=== PATIENT | male | born 1980 | race American Indian/Alaskan Native ===

== ENCOUNTER 2021-01-30 03:42 | Emergency (ER) | payer SELFPAY ==
[2021-01-30] MEDS ORDERED: LORazepam 2 MG/ML VIAL IM PRN (03:59)
[2021-01-30] MEDS ORDERED: HALOPERIDOL LACTATE 5 MG/1 ML INJ IM PRN (03:59)
--- NOTE | 2021-01-30 04:00 | Emergency Department Report ---
ED General Adult HPI - General Chief complaint: Psych Stated complaint: SUICIDAL IDEATIONS PUI?: No Time Seen by Provider: 01/30/21 03:57 Source: EMS ( EMS documentation not available at time of chart dictation ) Mode of arrival: Stretcher Limitations: No Limitations - History of Present Illness Initial comments: The patient is a 40-year-old gentleman. He is not known to myself previously. The patient reports that he is recently diagnosed as HIV positive a few months ago, and is currently maintained on Biktarvy. He also has a history of diabetes, and hypertension. He reports that he was recently released from incarceration, and has recently gotten , and is now homeless. He reports that he is hopeless and suicida l, and trying to overdose on crack cocaine. He denies headache, neck pain, chest pain, abdominal pain, nausea, vomiting diarrhea. He denies hallucinations. He reports that "I need help sorting this out." He reports he does not use intravenous drugs. He reports that he smokes crack. -: Gradual Severity scale (0 -10): 0 Consistency: constant Improves with: none Worsens with: none - Related Data Home Medications Medication Instructions Recorded Confirmed Last Taken Bictegrav/Emtricit/Tenofov Ala 1 each PO DAILY 01/30/21 01/30/21 Unknown [Biktarvy 50-200-25 mg Tablet] Losartan [Cozaar] 50 mg PO QDAY 01/30/21 01/30/21 Unknown Metformin HCl [metFORMIN] 1,000 mg PO BID 01/30/21 01/30/21 Unknown Previous Rx's Medication Instructions Recorded Last Taken Type Acetaminophen/Codeine [Tylenol #3] 1 tab PO Q6H PRN #12 tab 05/06/15 Unknown Rx Cyclobenzaprine [Flexeril] 10 mg PO QHS PRN #10 tablet 12/13/17 Unknown Rx Ibuprofen [Motrin] 600 mg PO Q8H PRN #20 tablet 12/13/17 Unknown Rx Allergies Allergy/AdvReac Type Severity Reaction Status Date / Time No Known Allergies Allergy Verified 05/06/15 01:36 ED Review of Systems ROS: Stated complaint: SUICIDAL IDEATIONS Other details as noted in HPI Constitutional: malaise. denies: fever Eyes: denies: eye discharge ENT: denies: epistaxis Respiratory: denies: cough Cardiovascular: denies: chest pain Gastrointestinal: denies: nausea, vomiting, diarrhea Genitourinary: denies: dysuria Musculoskeletal: denies: back pain Neurological: weakness. denies: headache Psychiatric: depression, suicidal thoughts ED Past Medical Hx - Past Medical History Hx Hypertension: Yes Hx Diabetes: Yes Hx Psychiatric Treatment: Yes (SI) - Surgical History Additional Surgical History: head 1996 - Social History Smoking Status: Unknown if ever smoked Substance Use Type: Marijuana - Medications Home Medications: Home Medications Medication Instructions Recorded Confirmed Last Taken Type Acetaminophen/Codeine [Tylenol #3] 1 tab PO Q6H PRN #12 tab 05/06/15 Unknown Rx Cyclobenzaprine [Flexeril] 10 mg PO QHS PRN #10 tablet 12/13/17 Unknown Rx Ibuprofen [Motrin] 600 mg PO Q8H PRN #20 tablet 12/13/17 Unknown Rx Bictegrav/Emtricit/Tenofov Ala 1 each PO DAILY 01/30/21 01/30/21 Unknown History [Biktarvy 50-200-25 mg Tablet] Losartan [Cozaar] 50 mg PO QDAY 01/30/21 01/30/21 Unknown History Metformin HCl [metFORMIN] 1,000 mg PO BID 01/30/21 01/30/21 Unknown History ED Physical Exam - General Limitations: No Limitations General appearance: alert, in no apparent distress - Head Head exam: Present: atraumatic, normocephalic - Eye Eye exam: Present: normal appearance, EOMI. Absent: nystagmus - ENT ENT exam: Present: normal exam, normal orophraynx, mucous membranes moist, normal external ear exam - Neck Neck exam: Present: normal inspection, full ROM. Absent: tenderness, meningi smus - Respiratory Respiratory exam: Present: normal lung sounds bilaterally. Absent: respiratory distress, wheezes, rales, rhonchi, stridor, decreased breath sounds - Cardiovascular Cardiovascular Exam: Present: regular rate, normal rhythm, normal heart sounds. Absent: bradycardia, tachycardia, irregular rhythm, systolic murmur, diastolic murmur, rubs, gallop - GI/Abdominal GI/Abdominal exam: Present: soft. Absent: distended, tenderness, guarding, rebound, rigid, pulsatile mass - Rectal Rectal exam: Present: deferred - Extremities Exam Extremities exam: Present: normal inspection, full ROM, other (2+ pulses noted in the bilateral upper and lower extremities. There is no palpable cord. nega tive Homans sign. Muscular compartments are soft. The pelvis is stable.). Absent: pedal edema, calf tenderness - Back Exam Back exam: Present: normal inspection. Absent: tenderness, CVA tenderness (R), CVA tenderness (L), paraspinal tenderness, vertebral tenderness - Neurological Exam Neurological exam: Present: alert, oriented X3, normal gait, other (No facial droop. Tongue midline. Extraocular movements intact bilaterally. Facial sensation intact to light touch in V1, V2, V3 distribution bilaterally. 5 and a 5 strength in 4 extremities. Sensation intact to light touch in 4 extremities.). Absent: motor sensory deficit - Psychiatric Psychiatric exam: Present: depressed, suicidal ideation. Absent: homicidal ideation - Skin Skin exam: Present: warm, dry, intact, normal color. Absent: rash ED Course Vital Signs 01/30/21 01/30/21 03:57 04:11 Temperature 98.7 F Pulse Rate 88 Respiratory 16 Rate Blood Pressure 138/78 [Left] O2 Sat by Pulse 98 98 Oximetry - Reevaluation(s) Reevaluation #1: 01/30/21 05:37 Differential diagnosis, including but not limited to: Homelessness, depression, dysthymia, suicidality, crack cocaine dependence, medical clearance for psychiatric placement Assessment and plan: 40-year-old gentleman, who was afebrile, with reassuring vital signs, who is clinically sober, who walks with a steady gait, who presents to the ER today with a complaint of suicidality. He is placed on a 1013. Laboratory studies ordered. Home medications to be reconciled. Reassess after acquisition of laboratory studies. 01/30/21 07:03 Laboratory studies are reviewed and appreciated. They are fairly unremarkable. CK will decrease on its own with rest and oral hydration. Urinalysis and Covid swab pending. The patient denied Covid symptoms and urinary symptoms to myself. The emergency room will follow along as the patient provides these results, and the 10 o'clock position will get around on this patient to also follow-up on these results. At this point in time, this patient does not appear to have an immediate medical contraindication to psychiatric admission, evaluation, consultation and placement. ED Medical Decision Making - Lab Data Result diagrams: 01/30/21 05:48 12/19/21 05:48 Vital Signs 01/30/21 01/30/21 03:57 04:11 Temperature 98.7 F Pulse Rate 88 Respiratory 16 Rate Blood Pressure 138/78 [Left] O2 Sat by Pulse 98 98 Oximetry Lab Results 01/30/21 01/30/21 01/30/21 Range/Units 05:48 05:48 05:48 WBC (4.5-11.0) K/mm3 RBC (3.65-5.03) M/mm3 Hgb (11.8-15.2) gm/dl Hct (35.5-45.6) % MCV (84-94) fl MCH (28-32) pg MCHC (32-34) % RDW (13.2-15.2) % Plt Count (140-440) K/mm3 Lymph % (Auto) (13.4-35.0) % [place] % (Auto) (0.0-7.3) % Eos % (Auto) (0.0-4.3) % Baso % (Auto) (0.0-1.8) % Lymph # (Auto) (1.2-5.4) K/mm3 [place] # (Auto) (0.0-0.8) K/mm3 Eos # (Auto) (0.0-0.4) K/mm3 Baso # (Auto) (0.0-0.1) K/mm3 Seg Neutrophils % (40.0-70.0) % Seg Neutrophils # (1.8-7.7) K/mm3 Sodium 130 L (137-145) mmol/L Potassium 4.4 (3.6-5.0) mmol/L Chloride 91.8 L (98-107) mmol/L Carbon Dioxide 24 (22-30) mmol/L Anion Gap 19 mmol/L BUN 14 (9-20) mg/dL Creatinine 0.9 (0.8-1.3) mg/dL Estimated GFR > 60 ml/min BUN/Creatinine Ratio 16 % Glucose 202 H (75-100) mg/dL Calcium 9.3 (8.4-10.2) mg/dL Total Creatine Kinase (55-170) units/L Salicylates < 0.3 L (2.8-20.0) mg/dL Acetaminophen 5.0 L (10.0-30.0) ug/mL Plasma/Serum Alcohol (0-0.07) % 01/30/21 01/30/21 01/30/21 Range/Units 05:48 05:48 05:48 WBC 7.2 (4.5-11.0) K/mm3 RBC 5.31 H (3.65-5.03) M/mm3 Hgb 15.4 H (11.8-15.2) gm/dl Hct 47.0 H (35.5-45.6) % MCV 89 (84-94) fl MCH 29 (28-32) pg MCHC 33 (32-34) % RDW 13.8 (13.2-15.2) % Plt Count 169 (140-440) K/mm3 Lymph % (Auto) 27.6 (13.4-35.0) % [place] % (Auto) 8.9 H (0.0-7.3) % Eos % (Auto) 0.1 (0.0-4.3) % Baso % (Auto) 0.5 (0.0-1.8) % Lymph # (Auto) 2.0 (1.2-5.4) K/mm3 [place] # (Auto) 0.6 (0.0-0.8) K/mm3 Eos # (Auto) 0.0 (0.0-0.4) K/mm3 Baso # (Auto) 0.0 (0.0-0.1) K/mm3 Seg Neutrophils % 62.9 (40.0-70.0) % Seg Neutrophils # 4.5 (1.8-7.7) K/mm3 Sodium (137-145) mmol/L Potassium (3.6-5.0) mmol/L Chloride (98-107) mmol/L Carbon Dioxide (22-30) mmol/L Anion Gap mmol/L BUN (9-20) mg/dL Creatinine (0.8-1.3) mg/dL Estimated GFR ml/min BUN/Creatinine Ratio % Glucose (75-100) mg/dL Calcium (8.4-10.2) mg/dL Total Creatine Kinase 395 H (55-170) units/L Salicylates (2.8-20.0) mg/dL Acetaminophen (10.0-30.0) ug/mL Plasma/Serum Alcohol < 0.01 (0-0.07) % Vital Signs 01/30/21 01/30/21 03:57 04:11 Temperature 98.7 F Pulse Rate 88 Respiratory 16 Rate Blood Pressure 138/78 [Left] O2 Sat by Pulse 98 98 Oximetry Critical care attestation.: If time is entered above; I have spent that time in minutes in the direct care of this critically ill patient, excluding procedure time. ED Disposition Clinical Impression: Medical clearance for psychiatric admission, Crack cocaine use, Homelessness Disposition: [address] [place] [address] Is pt being admited?: No Does the pt Need Aspirin: No Condition: Good Referrals: PRIMARY CARE, [Primary Care Provider] - 3-5 Days
[2021-01-30 06:18] LABS: Basophils % (Auto) 0.5 % (0.0-1.8); Eosinophils % (Auto) 0.1 % (0.0-4.3); Hemoglobin 15.4 gm/dl (11.8-15.2); Lymphocytes % (Auto) 27.6 % (13.4-35.0); Mean Corpuscular HGB Conc 33 % (32-34); Mean Corpuscular Volume 89 fl (84-94); Monocytes # (Auto) 0.6 K/mm3 (0.0-0.8); Monocytes % (Auto) 8.9 % (0.0-7.3); Red Blood Count 5.31 M/mm3 (3.65-5.03); Red Cell Distribution Width 13.8 % (13.2-15.2)
[2021-01-30 06:26] LABS: Platelet Count 169 K/mm3 (140-440)
[2021-01-30 06:50] LABS: BUN/Creatinine Ratio 16; Blood Urea Nitrogen 14 mg/dL (9-20); Calcium 9.3 mg/dL (8.4-10.2); Hemolysis Index 9
[2021-01-30] MEDS: metFORMIN 500 MG TAB PO SCH (08:29)
[2021-01-30] MEDS ORDERED: NON-FORMULARY EACH (Bictegrav/Emtricit/Tenofov Ala [Biktarvy 50-200-25 Mg Tablet] 1 EACH T PO SCH (10:00)
[2021-01-30] MEDS ORDERED: NON-FORMULARY EACH (Metformin Hcl [Metformin] 1,000 MG Tablet) PO SCH (10:00)
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
[2021-01-30] MEDS: LOSARTAN 50 MG TAB PO SCH (11:51)
[2021-01-30] MEDS: EMTRICITABINE 200 MG CAP PO SCH (11:51)
[2021-01-30] MEDS: TENOFOVIR 300 MG TAB PO SCH (11:52)
[2021-01-30] MEDS: DOLUTEGRAVIR 50 MG TAB PO SCH (11:52)
[2021-01-30] MEDS: SERTRALINE 25 MG TAB PO SCH (11:53)
[2021-01-30] MEDS: DOXEPIN 25 MG CAP PO SCH (22:48)
[2021-01-31] MEDS: metFORMIN 500 MG TAB PO SCH ×2 (08:18→17:54)
--- NOTE | 2021-01-31 10:41 | Progress Note ---
Subjective - Reason for Consult Consult date: 01/31/21 Reason for consult: SI - Chief Complaint Chief complaint: The patient was seen today. He still endorses SI with no plan. He also verbalizes being "real depressed." The patient denies hallucinations of any kind REVIEW OF SYSTEMS Constitutional: Negative for weight loss ENT: Negative for stridor Respiratory: Negative for cough or hemoptysis All other systems reviewed and are negative MENTAL STATUS EXAMINATION General Appearance and Behavior: Age appropriate, good hygiene, wearing appropriate clothes. calm, cooperative Cooperation: Cooperative Psychomotor Behavior: Psychomotor normal Mood: severely depressed Affect and affective range: congruent with stated mood Thought Process: Goal directed Thought Content: Reality oriented Speech: Normal tone and pace Suicidal Ideation: Yes Homicidal Ideation: Denies Hallucinations: Denies Delusions: None elicited Impulse Control: Limited Insight and Judgment: Limited insight and good judgment Memory: Limited Attention: distracted Orientation: a/o x 3 Assessment (1) Major Depressive Disorder (2) Cocaine Use Disorder Treatment Plan 1013 Zoloft 25mg po daily Doxepin 25mg po qhs Medical: per primary Disposition: Recommend acute psychiatric inpatient treatment Will follow. thanks Case staffed with Dr. Morrow Mental Status Exam - Vital signs Last Vital Signs Temp 98.2 F 01/31/21 09:02 Pulse 96 H 01/31/21 09:02 Resp 18 01/31/21 09:02 BP 150/84 01/31/21 09:02 Pulse Ox 96 01/31/21 09:03
[2021-01-31] MEDS: LOSARTAN 50 MG TAB PO SCH (11:02)
[2021-01-31] MEDS: SERTRALINE 25 MG TAB PO SCH (11:02)
--- NOTE | 2021-01-31 11:11 | Event Note ---
Date: 01/31/21 Patient still endorsing suicidal ideation with no plan. Vital signs stable. 's labs reviewed and Accu-Chek is 253. Patient is currently taking Glucophage. Waiting for inpatient psychiatric admission.
[2021-01-31] MEDS: EMTRICITABINE 200 MG CAP PO SCH (12:21)
[2021-01-31] MEDS: DOLUTEGRAVIR 50 MG TAB PO SCH (12:21)
[2021-01-31] MEDS: TENOFOVIR 300 MG TAB PO SCH (12:21)
[2021-01-31 22:13] LABS: Bilirubin,Urine NEG (Negative); Blood,Urine NEG (Negative); Color,Urine Yellow (Yellow); RBC,Urine < 1.0 /HPF (0.0-6.0)
[2021-01-31 22:20] LABS: Amphetamine Screen,Urine Negative; Benzodiazepines Screen,Urine Negative; Cannabinoid Screen,Urine Negative; Methadone Screen,Urine Negative; Opiate Screen,Urine Negative
[2021-01-31] MEDS: DOXEPIN 25 MG CAP PO SCH (22:35)
[2021-01-31 22:36] LABS: Cocaine Screen,Urine Positive
--- NOTE | 2021-02-01 10:04 | Progress Note ---
Subjective - Reason for Consult Consult date: 02/01/21 Reason for consult: SI - Chief Complaint Chief complaint: The patient was seen today. He verbalizes feeling real depressed. The patient says "I feel weird and I don't know why." He says "not really so much" when asked was he still suicidal. He says "just real weird." The patient talks about seeing demons and pitch forks. He says "I keep seeing all these demons and stuff." REVIEW OF SYSTEMS Constitutional: Negative for weight loss ENT: Negative for stridor Respiratory: Negative for cough or hemoptysis All other systems reviewed and are negative MENTAL STATUS EXAMINATION General Appearance and Behavior: Age appropriate, good hygiene, wearing appropriate clothes. calm, cooperative Cooperation: Cooperative Psychomotor Behavior: Psychomotor normal Mood: severely depressed Affect and affective range: congruent with stated mood Thought Process: Goal directed Thought Content: Reality oriented Speech: Normal tone and pace Suicidal Ideation: Yes Homicidal Ideation: Denies Hallucinations: Visual Delusions: None elicited Impulse Control: Limited Insight and Judgment: Limited insight and good judgment Memory: Limited Attention: distracted Orientation: a/o x 3 Assessment (1) Major Depressive Disorder (2) Cocaine Use Disorder Treatment Plan 1013 Zoloft 25mg po daily Doxepin 25mg po qhs Start Abilify 5mg po daily Medical: per primary Disposition: Recommend acute psychiatric inpatient treatment Will follow. thanks Case staffed with Dr. Morrow Mental Status Exam - Vital signs Last Vital Signs Temp 98.5 F 02/01/21 08:58 Pulse 110 H 02/01/21 08:58 Resp 16 02/01/21 08:58 BP 136/95 02/01/21 08:58 Pulse Ox 93 02/01/21 08:58
[2021-02-01] MEDS: metFORMIN 500 MG TAB PO SCH ×2 (11:37→17:31)
[2021-02-01] MEDS: LOSARTAN 50 MG TAB PO SCH (11:37)
[2021-02-01] MEDS ORDERED: guaiFENesin DM 200/20 MG ORAL LIQD 10 ML PO PRN (12:52)
--- NOTE | 2021-02-01 12:52 | Event Note ---
Date: 02/01/21 S: No events reported overnight. Patient with occasional cough. Coronavirus negative O: Vital Signs - 8 hr 02/01/21 02/01/21 08:58 11:37 Temperature 98.5 F Pulse Rate 110 H 110 H Respiratory 16 Rate Blood Pressure 136/95 Blood Pressure 136/95 [Left] O2 Sat by Pulse 93 Oximetry Chest x-ray (read by myself)-no focal infiltrates, no pneumothorax [facility] [address] [place] [address] XRay Report Signed Patient: YANIRA LAGOS JR MR#: [id number] : 1980 Acct:[id number] Age/Sex: 40 / M ADM Date: 01/30/21 Loc: ED Attending Dr: Ordering Physician: AZEB MYERS MD Date of Service: 02/01/21 Procedure(s): XR chest routine 2V Accession Number(s): [id number] cc: AZEB MYERS MD Fluoro Time In Minutes: CHEST 2 VIEWS INDICATION / CLINICAL INFORMATION: Cough. COMPARISON: None available. FINDINGS: SUPPORT DEVICES: None. HEART / MEDIASTINUM: No significant abnormality. LUNGS / PLEURA: No significant pulmonary or pleural abnormality. No pneumothorax. ADDITIONAL FINDINGS: No significant additional findings. IMPRESSION: 1. No acute findings. Signer Name: Tung Acevedo MD Signed: 02/01/2021 1:32 PM Workstation Name: [id number] Transcribed By: KURT Dictated By: Tung Acevedo MD Electronically Authenticated By: Tung Acevedo MD Signed Date/Time: 02/01/211331 DD/ 31 TD/TT: Print Cancel A: Major depressive disorder, cocaine use P: 1013/awaiting inpatient psych. Chest x-ray. Cough medication as needed
--- NOTE | 2021-02-01 13:36 | XRay Report ---
CHEST 2 VIEWS INDICATION / CLINICAL INFORMATION: Cough. COMPARISON: None available. FINDINGS: SUPPORT DEVICES: None. HEART / MEDIASTINUM: No significant abnormality. LUNGS / PLEURA: No significant pulmonary or pleural abnormality. No pneumothorax. ADDITIONAL FINDINGS: No significant additional findings. IMPRESSION: 1. No acute findings. Signer Name: Tung Acevedo MD Signed: 02/01/2021 1:32 PM Workstation Name: [id number]
[2021-02-01] MEDS: DOLUTEGRAVIR 50 MG TAB PO SCH (17:31)
[2021-02-01] MEDS: TENOFOVIR 300 MG TAB PO SCH (17:31)
[2021-02-01] MEDS: ARIPiprazole 5 MG TAB PO SCH (17:31)
[2021-02-01] MEDS: SERTRALINE 25 MG TAB PO SCH (17:31)
[2021-02-01] MEDS: EMTRICITABINE 200 MG CAP PO SCH (17:31)
[2021-02-02] MEDS: DOXEPIN 25 MG CAP PO SCH (00:30)
[2021-02-02] MEDS: metFORMIN 500 MG TAB PO SCH (08:01)
--- NOTE | 2021-02-02 08:34 | Progress Note ---
Subjective - Reason for Consult Consult date: 02/02/21 Reason for consult: SI, substance use - Chief Complaint Chief complaint: The patient was seen today. He is calm, cooperative and pleasant. He verbalizes doing better. He says he slept "pasquale good." He denies hallucinations. When asking was he still suicidal, the patient replies "naw, I haven't been feeling like that." REVIEW OF SYSTEMS Constitutional: Negative for weight loss ENT: Negative for stridor Respiratory: Negative for cough or hemoptysis All other systems reviewed and are negative MENTAL STATUS EXAMINATION General Appearance and Behavior: Age appropriate, good hygiene, wearing appropriate clothes. calm, cooperative Cooperation: Cooperative Psychomotor Behavior: Psychomotor normal Mood: better Affect and affective range: congruent with stated mood Thought Process: Goal directed Thought Content: Reality oriented Speech: Normal tone and pace Suicidal Ideation: Denies Homicidal Ideation: Denies Hallucinations: Denies Delusions: None elicited Impulse Control: Limited Insight and Judgment: Limited insight and good judgment Memory: Limited Attention: distracted Orientation: a/o x 3 Assessment (1) Major Depressive Disorder (2) Cocaine Use Disorder Treatment Plan d/c 1013 Zoloft 25mg po daily Doxepin 25mg po qhs Abilify 5mg po daily Medical: per primary Disposition: Do not Recommend acute psychiatric inpatient treatment. The patient understands if SI/HI or any fear of endangerment arise he is to seek immediate assistance. The chain tender to give the patient all necessary resources for outpatient including drug rehab, and CBT The patient is to abstain from all illicit drug use The patient is to follow up with outpatient psych in 7 to 14 days upon discharge Will sign off. Thanks Case staffed with Dr. Morrow Mental Status Exam - Vital signs Last Vital Signs Temp 98.7 F 02/01/21 20:33 Pulse 108 H 02/01/21 20:33 Resp 20 02/01/21 20:33 BP 132/88 02/01/21 20:33 Pulse Ox 98 02/01/21 20:34
--- NOTE | 2021-02-02 09:56 | Event Note ---
This gentleman has been cleared for discharge by psychiatric team.
[2021-02-02] MEDS: LOSARTAN 50 MG TAB PO SCH (10:06)
[2021-02-02] MEDS: SERTRALINE 25 MG TAB PO SCH (10:06)
[2021-02-02] MEDS: ARIPiprazole 5 MG TAB PO SCH (10:06)
[2021-02-02] MEDS: EMTRICITABINE 200 MG CAP PO SCH (10:06)
[2021-02-02] MEDS: DOLUTEGRAVIR 50 MG TAB PO SCH (10:06)
[2021-02-02] MEDS: TENOFOVIR 300 MG TAB PO SCH (10:06)
[2021-02-02 10:08] VITALS: BP 132/85
== END 2021-02-02 11:43 | disposition home or self-care (01) ==
LOC: ED 03:42
DX: Z04.6 Encounter for general psychiatric examination, requested by authority (principal); F14.90 Cocaine use, unspecified, uncomplicated; Z20.822 Contact with and (suspected) exposure to COVID-19; I10 Essential (primary) hypertension; E11.9 Type 2 diabetes mellitus without complications; F12.90 Cannabis use, unspecified, uncomplicated; Z59.00 Homelessness unspecified; Z79.899 Other long term (current) drug therapy
CPT/HCPCS: 36415; 71046; 80048; 80307; 81001; 82550; 82962; 85025; 99285; U0003; 80320; G0480

== ENCOUNTER 2021-06-17 23:56 | Emergency (ER) | payer OTHER ==
[2021-06-18 00:10] VITALS: BP 142/92
== END 2021-06-18 02:58 | disposition left against medical advice (07) ==
LOC: ED 23:56
DX: R53.1 Weakness (principal); Z53.21 Procedure and treatment not carried out due to patient leaving prior to being seen by health care provider